=== PATIENT | female | born 1930 | race Caucasian/White ===

== ENCOUNTER 2019-05-12 10:17 | Day surgery (SDC) | payer MEDICARE, OTHER ==
[2019-05-12] MEDS ORDERED: Depo-Medrol 40 MG/ML IM ONE (10:18)
[2019-05-12] MEDS ORDERED: Xylocaine-Mpf 2% 5 Ml Vial IJ ONE (10:18)
[2019-05-12] MEDS ORDERED: DIPRIVAN 200 MG/20 ML IV ONE (11:05)
[2019-05-12] MEDS ORDERED: Ketamine HCl 50 MG/ML ONE (11:06)
--- NOTE | 2019-05-12 12:01 | XRAY ---
Indication: Bilateral L4-S1 MBB. Intraoperative fluoroscopy was provided for 7 seconds. Single spot image submitted for interpretation demonstrates posterior needle tips projecting over the expected course of the left and right L4-S1 nerve roots. Correlate with intraoperative findings/report.
--- NOTE | 2019-05-12 12:03 | XRAY ---
7 seconds fluoroscopy time in surgery for bilateral L4-S1 MBB.
[2019-05-12] MEDS ORDERED: Lactated Ringers 1,000 ML IV ONE (13:45)
== END 2019-05-12 11:35 | disposition home or self-care (01) ==
LOC: SDC-PAIN 10:17
PROVIDERS: ATTEND Psychiatry & Neurology Pain Medicine
DX: M47.816 Spondylosis without myelopathy or radiculopathy, lumbar region (principal); I10 Essential (primary) hypertension; E78.5 Hyperlipidemia, unspecified; K21.9 Gastro-esophageal reflux disease without esophagitis; Z79.899 Other long term (current) drug therapy
CPT/HCPCS: 64493; 64494; 72020; 77002; J1030; J2704

== ENCOUNTER 2019-06-09 09:43 | Day surgery (SDC) | payer MEDICARE, OTHER ==
[2019-06-09] MEDS ORDERED: Sodium Chloride 0.9(Preservative Free) 10 ML IJ ONE (09:44)
[2019-06-09] MEDS ORDERED: Depo-Medrol 40 MG/ML IM ONE (09:44)
[2019-06-09] MEDS ORDERED: Xylocaine 1% Vial 30 ML PF IJ ONE (09:44)
[2019-06-09] MEDS ORDERED: Ketamine HCl 50 MG/ML ONE (11:03)
[2019-06-09] MEDS ORDERED: DIPRIVAN 200 MG/20 ML IV ONE (11:03)
--- NOTE | 2019-06-09 12:54 | XRAY ---
Indication: Lumbar JERRI. Intraoperative fluoroscopy was provided for 20 seconds. 2 digital spot images submitted for interpretation demonstrates midline needle tip just posterior to the last lumbar segment. Small amount of contrast injected for needle tip placement. Correlate with intraoperative findings/report.
--- NOTE | 2019-06-09 13:02 | XRAY ---
20 seconds fluoroscopy time in surgery for lumbar JERRI.
[2019-06-09] MEDS ORDERED: Lactated Ringers 1,000 ML IV ONE (15:52)
== END 2019-06-09 11:33 | disposition home or self-care (01) ==
LOC: SDC-PAIN 09:43
PROVIDERS: ATTEND Psychiatry & Neurology Pain Medicine
DX: M54.16 Radiculopathy, lumbar region (principal); I10 Essential (primary) hypertension; K21.9 Gastro-esophageal reflux disease without esophagitis; E78.5 Hyperlipidemia, unspecified; Z79.899 Other long term (current) drug therapy
CPT/HCPCS: 72100; 77003; J1030; J2001; J2704

== ENCOUNTER 2019-09-26 20:46 | Emergency (ER) | payer MEDICARE, OTHER ==
[2019-09-26] MEDS ORDERED: DELTASONE 20 MG PO ONE (21:47)
[2019-09-26] MEDS ORDERED: DUONEB 0.5-3 MG/3 ml Neb IH ONE ×2 (21:47→22:03)
[2019-09-26] MEDS ORDERED: Robitussin AC Syrup Unit Dose Cup PO ONE (21:47)
[2019-09-26] MEDS ORDERED: DELTASONE 20 MG ONE (21:57)
[2019-09-26] MEDS ORDERED: Robitussin AC Syrup Unit Dose Cup ONE (21:57)
[2019-09-26 22:10] LABS: Absolute Neutrophil Ct (ANC) 5.64 (1.4-6.9); BASOPHIL % 0.6 % (0.0-0.4); Basophil (Absolute #) 0.06 (0-0.4); Eosinophil % 3.6 % (0.00-5.0); Eosinophil (Absolute #) 0.34 (0-0.5); Hematocrit 35.6 % (35-47); Hemoglobin 11.5 gm/dl (12.0-16.0); Lymphocyte (Absolute #) 2.41 (1.0-4.6); Lymphocytes % 25.8 % (24.0-44.0); Mean Cell Volume 93.4 fl (78-100); Mean Corpuscular Hemoglobin 30.2 pg (26-32); Mean Corpuscular Hgb Concent. 32.3 g/dl (32-36); Mean Platelet Volume 9.5 fl (6-9.5); Monocytes % 9.6 % (0.0-12.0); Neutrophil % 60.4 % (36.0-66.0); Platelet Count 244 K/mm3 (150-450); Red Blood Count 3.81 M/mm3 (4.1-5.4); Red Cell Distribution Width 12.6 % (11.5-14.0); White Blood Count 9.4 K/mm3 (4.0-10.5)
[2019-09-26 22:20] LABS: ALBUMIN 4.1 g/dL (3.5-5.0); ALKALINE PHOSPHATASE 113 U/L (38-126); ANION GAP 12.9 MEQ/L (5-15); BLOOD UREA NITROGEN 21 mg/dL (7-17); CHLORIDE 106 mmol/L (98-107); Calcium 10.5 mg/dL (8.4-10.2); Carbon Dioxide 25 mmol/L (22-30); Creatinine 1 0.76 mg/dL (0.52-1.04); Glucose 115 mg/dL (74-106); Potassium 3.8 mmol/L (3.5-5.1); SGOT/AST 23 U/L (14-36); SGPT/ALT 11 U/L (0-35); SODIUM 140 mmol/L (137-145); Total Protein 8.1 g/dL (6.3-8.2)
[2019-09-26 22:24] VITALS: O2SAT 99
[2019-09-26] MEDS ORDERED: Vibramycin 100 MG PO ONE (22:34)
[2019-09-26] MEDS ORDERED: PERCOCET TABLET 5/325MG PO ONE (22:34)
[2019-09-26] MEDS ORDERED: PERCOCET TABLET 5/325MG ONE (22:38)
[2019-09-26] MEDS ORDERED: Vibramycin 100 MG ONE (22:38)
--- NOTE | 2019-09-26 23:01 | ERPHSYRPT ---
- History of Present Illness Time Seen by Provider: 09/26/19 21:05 Source: patient Exam Limitations: no limitations Patient Subjective Stated Complaint: pt states, "I've been coughing since last Friday, feeling really tired, headache and don't feel good". Triage Nursing Assessment: pt states, "Jillian been coughing x1 week, can't get over it and I feel bad and ache all over". Pt has mostly non prod cough with occasional production, white and yellow at times. Lungs coarse throughout. Heart tones reg, pt has pacemaker. Physician History: 89 yo presented with more than 1 week h/o URI with intermittent cough with progressive worsening. cough is dry to minimal mucus production of clear to yellow color. because of coughing having some chest soreness , no fever or chills or shortness of breath. Timing/Duration: week(s) (1), worse Cough Quality/Degree: moderate, dry cough Modifying Factors: Improves With: coughing Associated Symptoms: cough, sore throat, wheezing Allergies/Adverse Reactions: No Known Drug Allergies Allergy (Verified 10/02/16 09:29) Home Medications: Omeprazole [Prilosec] 40 mg PO DAILY 02/20/16 [History] Potassium Chloride 20 Meq [Klor-Con 20 MEQ] 20 meq PO DAILY 02/20/16 [History] Pravastatin Sodium [Pravachol] 80 mg PO DAILY 02/20/16 [History] Losartan Potassium [Cozaar] 25 mg PO DAILY 10/02/16 [History] Tizanidine HCl 4 mg [Zanaflex 4 MG] 4 mg PO HS 10/02/16 [History] Hx Tetanus, Diphtheria Vaccination/Date Given: Yes Hx Influenza Vaccination/Date Given: Yes Hx Pneumococcal Vaccination/Date Given: Yes Immunizations Up to Date: Yes - Review of Systems Constitutional: No Symptoms Eyes: No Symptoms Ears, Nose, & Throat: Nose Congestion, Sinus Drainage, Throat Pain, Throat Swelling Respiratory: Cough Cardiac: No Symptoms Abdominal/Gastrointestinal: No Symptoms Genitourinary Symptoms: No Symptoms Musculoskeletal: No Symptoms Skin: No Symptoms Neurological: No Symptoms Psychological: No Symptoms Endocrine: No Symptoms Hematologic/Lymphatic: No Symptoms Immunological/Allergic: No Symptoms - Past Medical History Pertinent Past Medical History: Yes Neurological History: Migraines ENT History: Cataracts Cardiac History: Arrhythmia, High Cholesterol, Hypertension Respiratory History: No Pertinent History Endocrine Medical History: No Pertinent History Musculoskeletal History: Arthritis GI Medical History: GERD, Gallbladder Disease History: No Pertinent History Psycho-Social History: No Pertinent History Female Reproductive Disorders: No Pertinent History - Past Surgical History Past Surgical History: Yes Neuro Surgical History: No Pertinent History Cardiac: Pacemaker Respiratory: No Pertinent History Gastrointestinal: Cholecystectomy Genitourinary: No Pertinent History Musculoskeletal: Orthopedic Surgery Female Surgical History: Hysterectomy Other Surgical History: left foot surgery - Social History Smoking Status: Never smoker Exposure to second hand smoke: No Drug Use: none Patient Lives Alone: Yes - Female History Hx Now: No - Nursing Vital Signs Nursing Vital Signs: Initial Vital Signs Temperature 97.8 F 09/26/19 21:02 Pulse Rate 82 09/26/19 21:02 Respiratory Rate 20 09/26/19 21:02 Blood Pressure 107/82 09/26/19 21:02 O2 Sat by Pulse Oximetry 98 09/26/19 21:02 Pain Scale Pain Intensity 8 - Physical Exam General Appearance: no apparent distress Eye Exam: eyes nml inspection Ears, Nose, Throat Exam: normal ENT inspection, pharyngeal erythema Neck Exam: normal inspection, non-tender, supple Respiratory Exam: normal breath sounds, lungs clear Cardiovascular Exam: regular rate/rhythm, normal heart sounds Gastrointestinal/Abdomen Exam: soft, normal bowel sounds, No distention Back Exam: normal inspection, normal range of motion, other, No CVA tenderness Extremity Exam: normal inspection, normal range of motion Neurologic Exam: alert, oriented x 3, cooperative Skin Exam: normal color SpO2 Interpretation: normal SpO2: 99 O2 Delivery: Room Air - Course Nursing assessment & vital signs reviewed: Yes Ordered Tests: Active Orders 24 hr Category Date Time Status CHEST 2 VIEWS (PA AND LAT) Stat Exams 09/26/19 21:45 Taken CBC W DIFF Stat Lab 09/26/19 22:04 Completed CMP Stat Lab 09/26/19 22:04 Completed Respiratory Therapy Assessment DAILY RT 09/26/19 22:01 Active Medication Summary Discontinued Medications Generic Name Dose Route Start Last Admin Trade Name Freq PRN Reason Stop Dose Admin Albuterol/Ipratropium 3 ml 09/26/19 21:47 09/26/19 22:02 Duoneb 0.5-3 Mg/3 Ml Neb IH 09/26/19 21:48 3 ml STAT ONE Administration Albuterol/Ipratropium Confirm 09/26/19 22:03 Duoneb 0.5-3 Mg/3 Ml Neb Administered 09/26/19 22:04 Dose 3 ml IH .STK-MED ONE Doxycycline Hyclate 100 mg 09/26/19 22:34 09/26/19 22:38 Vibramycin 100 Mg PO 09/26/19 22:35 100 mg STAT ONE Administration Doxycycline Hyclate Confirm 09/26/19 22:38 Vibramycin 100 Mg Administered 09/26/19 22:39 Dose 100 mg .ROUTE .STK-MED ONE Guaifenesin/Codeine Phosphate 10 ml 09/26/19 21:47 09/26/19 21:59 Robitussin Ac Syrup Unit Dose Cup PO 09/26/19 21:48 10 ml ONCE ONE Administration Guaifenesin/Codeine Phosphate Confirm 09/26/19 21:57 Robitussin Ac Syrup Unit Dose Cup Administered 09/26/19 21:58 Dose 10 ml .ROUTE .STK-MED ONE Oxycodone/Acetaminophen 1 tab 09/26/19 22:34 09/26/19 22:38 Percocet Tablet 5/325mg PO 09/26/19 22:35 1 tab STAT ONE Administration Oxycodone/Acetaminophen Confirm 09/26/19 22:38 Percocet Tablet 5/325mg Administered 09/26/19 22:39 Dose 1 tab .ROUTE .STK-MED ONE Prednisone 60 mg 09/26/19 21:47 09/26/19 21:59 Deltasone 20 Mg PO 09/26/19 21:48 60 mg STAT ONE Administration Prednisone Confirm 09/26/19 21:57 Deltasone 20 Mg Administered 09/26/19 21:58 Dose 20 mg .ROUTE .STK-MED ONE Lab/Rad Data: Laboratory Result Diagrams 09/26/19 22:04 09/26/19 22:04 Laboratory Results 09/26/19 09/26/19 Range/Units 22:04 22:04 WBC 9.4 (4.0-10.5) K/mm3 RBC 3.81 L (4.1-5.4) M/mm3 Hgb 11.5 L (12.0-16.0) gm/dl Hct 35.6 (35-47) % MCV 93.4 (78-100) fl MCH 30.2 (26-32) pg MCHC 32.3 (32-36) g/dl RDW 12.6 (11.5-14.0) % Plt Count 244 (150-450) K/mm3 MPV 9.5 (6-9.5) fl Gran % 60.4 (36.0-66.0) % Eos # (Auto) 0.34 (0-0.5) Absolute Lymphs (auto) 2.41 (1.0-4.6) Absolute Monos (auto) 0.90 (0.0-1.3) Lymphocytes % 25.8 (24.0-44.0) % Monocytes % 9.6 (0.0-12.0) % Eosinophils % 3.6 (0.00-5.0) % Basophils % 0.6 (0.0-0.4) % Absolute Granulocytes 5.64 (1.4-6.9) Basophils # 0.06 (0-0.4) Sodium 140 (137-145) mmol/L Potassium 3.8 (3.5-5.1) mmol/L Chloride 106 (98-107) mmol/L Carbon Dioxide 25 (22-30) mmol/L Anion Gap 12.9 (5-15) MEQ/L BUN 21 H (7-17) mg/dL Creatinine 0.76 (0.52-1.04) mg/dL Estimated GFR > 60.0 ML/MIN Glucose 115 H (74-106) mg/dL Calcium 10.5 H (8.4-10.2) mg/dL Total Bilirubin 0.40 (0.2-1.3) mg/dL AST 23 (14-36) U/L ALT 11 (0-35) U/L Alkaline Phosphatase 113 (38-126) U/L Serum Total Protein 8.1 (6.3-8.2) g/dL Albumin 4.1 (3.5-5.0) g/dL - Progress Progress: improved, re-examined Air Movement: good Progress Note: 09/26/19 22:58 she is given cough syrup with steroids and nebs, on re evaluation better. i beleive she has bronchitis but this is going on for more than a week with bacterial colonization an with her age make her more vulnerable , will do doxy as well. dont think she needs to be admitted , not in any distress and is being dc home with outpatient follow up. discussed sx/sn of worsening needing return which she seems understanding. Counseled pt/family regarding: lab results, diagnosis, need for follow-up, rad results - Departure Departure Disposition: Home Clinical Impression: Acute bronchitis Qualifiers: Bronchitis organism: unspecified organism Qualified Code(s): J20.9 - Acute bronchitis, unspecified Condition: Good Critical Care Time: No Referrals: REGINALD CONNOR MD [Primary Care Provider] - Instructions: Cough, Adult (DC) Additional Instructions: take tylenol as needed. follow up with PCP for re evaluation in 1-2 days. return to ER for any worsening Prescriptions: Guaifenesin/Codeine Phos [Codeine 10 mg-Guai 300 mg Liq] 10 ml PO Q8HPRN PRN 7 Days #118 ml PRN Reason: Cough Doxycycline Hyclate 100 mg [Vibramycin 100 MG] 100 mg PO BID #14 tab Prednisone 50 mg PO DAILY #5 tablet
[2019-09-26 23:18] VITALS: BP 148/69; PULSE 82
--- NOTE | 2019-09-27 08:57 | XRAY ---
Indication: Cough and weakness. Comparison: September 26, 2014. PA/lateral chest rotated with minimal left base fibrosis/scarring. No focal infiltrate, consolidation, or large effusion. Heart is not enlarged with stable left dual-lead pacemaker. Bony thorax intact again with mild osteopenia, degenerative changes, and scoliosis. Impression: Nonacute chest with chronic features.
== END 2019-09-26 23:28 | disposition home or self-care (01) ==
LOC: ED 20:46
DX: J20.9 Acute bronchitis, unspecified (principal); I10 Essential (primary) hypertension; E78.00 Pure hypercholesterolemia, unspecified; Z79.899 Other long term (current) drug therapy
CPT/HCPCS: 36415; 71046; 80053; 85025; 94640; 99284; A9270-GY

== ENCOUNTER 2019-11-09 10:47 | Emergency (ER) | payer MEDICARE, OTHER ==
[2019-11-09] MEDS ORDERED: TENIVAC VIAL IM ONE ×2 (10:56→11:08)
--- NOTE | 2019-11-09 11:16 | ERPHSYRPT ---
- History of Present Illness Time Seen by Provider: 11/09/19 10:51 Source: patient Exam Limitations: no limitations Patient Subjective Stated Complaint: Fall Triage Nursing Assessment: Patient brought back to ED via w/c and transferred to bed with assist of 1. Patient A+O X 3. Patient's skin pink, warm and dry. Patient states she was walking in front of hospital on way inside and fell landing flat on stomach with face hitting concrete. Patient states pain is left wrist/hand 5/10. Bruising and swelling noted to left wrist. Laceration to upper lip 1cm X 0.1cm. Laceration to left hand, 5th digit 1cm X 0.5 cm Method of Injury: fall Occurred: just prior to arrival Where Injury Occurred: other (parking lot) Loss of Consciousness: no loss of consciousness Pain Location: face, wrist, hand Severity of Pain-Max: severe Severity of Pain-Current: moderate Associated Symptoms: extremity injury Allergies/Adverse Reactions: No Known Drug Allergies Allergy (Verified 11/09/19 10:56) Home Medications: Omeprazole [Prilosec] 40 mg PO DAILY 02/20/16 [History] Potassium Chloride 20 Meq [Klor-Con 20 MEQ] 20 meq PO DAILY 02/20/16 [History] Pravastatin Sodium [Pravachol] 80 mg PO DAILY 02/20/16 [History] Losartan Potassium [Cozaar] 25 mg PO DAILY 10/02/16 [History] Tizanidine HCl 4 mg [Zanaflex 4 MG] 4 mg PO HS 10/02/16 [History] Hx Tetanus, Diphtheria Vaccination/Date Given: No Hx Influenza Vaccination/Date Given: Yes Hx Pneumococcal Vaccination/Date Given: Yes Immunizations Up to Date: Yes - Review of Systems Constitutional: No Fever, No Chills Eyes: No Symptoms Ears, Nose, & Throat: No Symptoms Respiratory: No Cough, No Dyspnea Cardiac: No Chest Pain, No Edema, No Syncope Abdominal/Gastrointestinal: No Abdominal Pain, No Nausea, No Vomiting, No Diarrhea Genitourinary Symptoms: No Dysuria Musculoskeletal: Fall, Injury, Joint Pain, No Back Pain, No Neck Pain Skin: Other (laceration to left hand), No Rash Neurological: No Dizziness, No Focal Weakness, No Sensory Changes Psychological: No Symptoms Endocrine: No Symptoms All Other Systems: Reviewed and Negative - Past Medical History Pertinent Past Medical History: Yes Neurological History: Migraines ENT History: Cataracts Cardiac History: Arrhythmia, High Cholesterol, Hypertension Respiratory History: No Pertinent History Endocrine Medical History: No Pertinent History Musculoskeletal History: Arthritis GI Medical History: GERD, Gallbladder Disease History: No Pertinent History Psycho-Social History: No Pertinent History Female Reproductive Disorders: No Pertinent History - Past Surgical History Past Surgical History: Yes Neuro Surgical History: No Pertinent History Cardiac: Pacemaker Respiratory: No Pertinent History Gastrointestinal: Cholecystectomy Genitourinary: No Pertinent History Musculoskeletal: Orthopedic Surgery Female Surgical History: Hysterectomy Other Surgical History: left foot surgery - Social History Smoking Status: Never smoker Exposure to second hand smoke: No Drug Use: none Patient Lives Alone: Yes Physical Exam - Nursing Vital Signs Nursing Vital Signs: Initial Vital Signs Temperature 98.0 F 11/09/19 10:56 Pulse Rate 67 11/09/19 10:56 Respiratory Rate 18 11/09/19 10:56 Blood Pressure 155/88 11/09/19 10:56 O2 Sat by Pulse Oximetry 97 11/09/19 10:56 Pain Scale Pain Intensity 5 - Haleigh Coma Score Best Eye Response ([place]): (4) open spontaneously Best Verbal Response ([place]): (5) oriented Best Motor Response ([place]): (6) obeys commands [place] Total: 15 - Physical Exam General Appearance: mild distress, alert Head Injury: no evidence of injury ENT Exam: airway nml, nml ext.inspection, No evidence of ENT injury Neck Exam: supple, trachea midline, normal inspection, c-collar in place, No tenderness Respiratory/Chest Exam: normal breath sounds, No chest tenderness, No respiratory distress, No ecchymosis, No crepitus Cardiovascular Exam: normal heart sounds, regular rate/rhythm, normal peripheral pulses, No murmur, No edema, No JVD Gastrointestinal Exam: soft, No tenderness, No distention, No guarding Back Exam: normal inspection, normal range of motion, No vertebral tenderness Extremity Exam: normal range of motion, capillary refill <3 sec, pelvis stable, joint swelling (left wrist), limited range of motion, tenderness (left wrist and 5th digit.) Neurologic Exam: alert, oriented x 3, cooperative, 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, sensation nml, No motor deficits Skin Exam: normal color, warm, dry, laceration (palamr aspect of 5th left MCP area) SpO2: 97 Procedures - Laceration/Wound Repair Left Proximal Volar Hand Wound Location: Left, hand Wound Length (cm): 2.5 Wound's Depth, Shape: irregular, into subcut Wound Explored: clean Irrigated: Yes Hibiclens Prep: Yes Anesthesia: local, 1% Lidocaine Volume Anesthetic (ccs): 3 Wound Repaired With: sutures Suture Size/Type: 5-0, ethilon Number of Sutures: 5 Layer Closure?: No Sterile Dressing Applied?: Yes Splint Applied?: Yes Type of Splint Applied: Volar wrist Sling Applied?: No - Course Nursing assessment & vital signs reviewed: Yes - Radiology Exams Wrist X-ray Interpretation: Discussed w/ radiologist, Other (possible widening of scapholunate, ligament injury. ) Left Hand X-ray Interpretation: Discussed w/ radiologist, No Fracture - CT Exams Head CT Interpretation: Discussed w/radiologist, No/Intracranial Hemorrhag Cervical Spine CT Interpretation: Discussed w/radiologist, No Fracture, No Subluxation Maxillofacial Bones CT Interpretation: Discussed w/radiologist, No Fracture Ordered Tests: Active Orders 24 hr Category Date Time Status IV Insertion STAT Care 11/09/19 10:56 Active NPO (ED) STAT Care 11/09/19 10:56 Active Splint STAT Care 11/09/19 12:59 Ordered Wound Care STAT Care 11/09/19 12:58 Ordered CERVICAL SPINE WO CONTRAST [CT] Stat Exams 11/09/19 10:57 Completed FACIAL BONES WO CONTRAST [CT] Stat Exams 11/09/19 10:57 Completed HAND (MINIMUM 3 VIEWS) Stat Exams 11/09/19 12:02 Completed HEAD WITHOUT CONTRAST [CT] Stat Exams 11/09/19 10:57 Completed WRIST (MIN 3 VIEWS) Stat Exams 11/09/19 10:58 Completed CBC W DIFF Stat Lab 11/09/19 11:29 Completed CMP Stat Lab 11/09/19 11:29 Completed PROTIME WITH INR Stat Lab 11/09/19 11:29 Completed PTT Stat Lab 11/09/19 11:29 Completed Medication Summary Discontinued Medications Generic Name Dose Route Start Last Admin Trade Name Freq PRN Reason Stop Dose Admin Tetanus/Diphtheria Toxoids Adsorbed 0.5 ml 11/09/19 10:56 11/09/19 11:10 Tenivac Vial IM 11/09/19 10:57 0.5 ml .ONCE ONE Administration Tetanus/Diphtheria Toxoids Adsorbed Confirm 11/09/19 11:08 Tenivac Vial Administered 11/09/19 11:09 Dose 0.5 ml IM .STK-MED ONE Lab/Rad Data: Laboratory Result Diagrams 11/09/19 11:29 11/09/19 11:29 Laboratory Results 11/09/19 11/09/19 11/09/19 Range/Units 11:29 11:29 11:29 WBC 6.9 (4.0-10.5) K/mm3 RBC 4.11 (4.1-5.4) M/mm3 Hgb 12.4 (12.0-16.0) gm/dl Hct 38.2 (35-47) % MCV 92.9 (78-100) fl MCH 30.2 (26-32) pg MCHC 32.5 (32-36) g/dl RDW 13.8 (11.5-14.0) % Plt Count 222 (150-450) K/mm3 MPV 9.4 (7.5-11.0) fl Gran % 49.9 (36.0-66.0) % Eos # (Auto) 0.32 (0-0.5) Absolute Lymphs (auto) 2.57 (1.0-4.6) Absolute Monos (auto) 0.51 (0.0-1.3) Lymphocytes % 37.4 (24.0-44.0) % Monocytes % 7.4 (0.0-12.0) % Eosinophils % 4.7 (0.00-5.0) % Basophils % 0.6 (0.0-0.4) % Absolute Granulocytes 3.44 (1.4-6.9) Basophils # 0.04 (0-0.4) PT 11.0 (9.95-12.35) SECONDS INR 0.97 (0.8-3.0) APTT 35.0 (25.3-37.0) SECONDS Sodium 140 (137-145) mmol/L Potassium 3.9 (3.5-5.1) mmol/L Chloride 102 (98-107) mmol/L Carbon Dioxide 28 (22-30) mmol/L Anion Gap 13.9 (5-15) MEQ/L BUN 31 H (7-17) mg/dL Creatinine 0.83 (0.52-1.04) mg/dL Estimated GFR > 60.0 ML/MIN Glucose 98 (74-106) mg/dL Calcium 10.4 H (8.4-10.2) mg/dL Total Bilirubin 0.50 (0.2-1.3) mg/dL AST 25 (14-36) U/L ALT 14 (0-35) U/L Alkaline Phosphatase 100 (38-126) U/L Serum Total Protein 7.9 (6.3-8.2) g/dL Albumin 4.2 (3.5-5.0) g/dL - Progress Progress: improved Progress Note: 11/09/19 13:03 Pt stable throughout. XR and CT fairly normal. Wrist XR shows possible ligamentous injury. Declines pain meds at this time. Advised follow up with PCP for re-eval of wrist. Counseled pt/family regarding: lab results, diagnosis, need for follow-up, rad results - Departure Departure Disposition: Home Clinical Impression: Hand laceration Qualifiers: Encounter type: initial encounter Foreign body presence: without foreign body Laterality: left Qualified Code(s): S61.412A - Laceration without foreign body of left hand, initial encounter Contusion of face Qualifiers: Encounter type: initial encounter Qualified Code(s): S00.83XA - Contusion of other part of head, initial encounter Wrist contusion Qualifiers: Encounter type: initial encounter Laterality: left Qualified Code(s): S60.212A - Contusion of left wrist, initial encounter Condition: Good Critical Care Time: No Referrals: REGINALD CONNOR MD [Primary Care Provider] - Instructions: Contusion (DC), Surgical Wound (DC) Additional Instructions: Monitor symptoms closely. Keep left hand and wrist dry. Keep in splint. Follow up with PCP in 4-5 days for recheck. Suture removal in 7 days. Return to ER if worse.
[2019-11-09 11:32] LABS: Absolute Neutrophil Ct (ANC) 3.44 (1.4-6.9); BASOPHIL % 0.6 % (0.0-0.4); Basophil (Absolute #) 0.04 (0-0.4); Eosinophil % 4.7 % (0.00-5.0); Eosinophil (Absolute #) 0.32 (0-0.5); Hematocrit 38.2 % (35-47); Hemoglobin 12.4 gm/dl (12.0-16.0); Lymphocyte (Absolute #) 2.57 (1.0-4.6); Lymphocytes % 37.4 % (24.0-44.0); Mean Cell Volume 92.9 fl (78-100); Mean Corpuscular Hemoglobin 30.2 pg (26-32); Mean Corpuscular Hgb Concent. 32.5 g/dl (32-36); Mean Platelet Volume 9.4 fl (7.5-11.0); Monocyte (Absolute #) 0.51 (0.0-1.3); Monocytes % 7.4 % (0.0-12.0); Neutrophil % 49.9 % (36.0-66.0); Platelet Count 222 K/mm3 (150-450); Red Blood Count 4.11 M/mm3 (4.1-5.4); Red Cell Distribution Width 13.8 % (11.5-14.0); White Blood Count 6.9 K/mm3 (4.0-10.5)
[2019-11-09 11:39] LABS: INR 0.97 (0.8-3.0)
[2019-11-09 11:42] LABS: ALBUMIN 4.2 g/dL (3.5-5.0); ALKALINE PHOSPHATASE 100 U/L (38-126); ANION GAP 13.9 MEQ/L (5-15); BLOOD UREA NITROGEN 31 mg/dL (7-17); CHLORIDE 102 mmol/L (98-107); Calcium 10.4 mg/dL (8.4-10.2); Carbon Dioxide 28 mmol/L (22-30); Creatinine 1 0.83 mg/dL (0.52-1.04); Glucose 98 mg/dL (74-106); Potassium 3.9 mmol/L (3.5-5.1); SGOT/AST 25 U/L (14-36); SGPT/ALT 14 U/L (0-35); SODIUM 140 mmol/L (137-145); Total Protein 7.9 g/dL (6.3-8.2)
--- NOTE | 2019-11-09 12:16 | XRAY ---
Indication: Left head injury following fall. Multiple contiguous axial images obtained through the head without contrast. Comparison: September 26, 2014. Again age-appropriate global atrophy and mild periventricular degenerative micro-ischemia bilaterally. No acute intracranial hemorrhage, abnormal extra-axial fluid collection, or mass effect. Fourth ventricle is midline without hydrocephalus. Bony calvarium intact. Visualized paranasal sinuses and mastoid air cells are clear. Impression: Again nonacute senile brain.
--- NOTE | 2019-11-09 12:22 | XRAY ---
Indication: Neck pain. Left head injury following fall. Multiple contiguous axial images obtained through the cervical spine. Sagittal and coronal reformatted images obtained. Comparison: October 04, 2016. Stable osteopenia. Axial images again negative for acute fracture, suspicious bony lesions, or spinal canal stenosis. There remains mild C3-C7 degenerative endplate spurring, atlantoaxial degenerative changes, and mild multilevel bilateral degenerative facet hypertrophy. New C4-C5 degenerative vacuum disc phenomena. Sagittal and coronal reformatted images demonstrates cervical lordotic straightening, positional versus paraspinal spasm. Stable C3-C7 degenerative disc space narrowing. Again no acute compression fracture, subluxation, or jumped facet. Normal-appearing craniocervical junction. Visualized noncontrasted soft tissues again demonstrates minimal bilateral carotid calcifications and partially visualized left pacer leads. Lung apices unremarkable. Impression: 1. Cervical lordotic straightening, positional versus paraspinal spasm. 2. Continued negative for acute fracture/subluxation. 3. Again incidental osteopenia and multilevel degenerative changes.
--- NOTE | 2019-11-09 12:26 | XRAY ---
Indication: Left head/face injury following fall. Multiple contiguous axial images obtained through the facial bones. Sagittal and coronal reformatted images obtained. Comparison: None. There is osteopenia and old right mandible body fracture. No acute fracture, suspicious bony lesions, or radiopaque foreign body. Orbits including roof, tee, and floors intact. Minimal mucosal thickening floor of both maxillary sinuses. Remaining paranasal sinuses and nasal passages are clear. Minimal nasal septal deviation to the left. Patient is edentulous. Moderate bilateral TMJ degenerative changes. Mild bilateral carotid calcifications. Remaining visualized noncontrasted soft tissues unremarkable. CT head and CT cervical spine reported separately. Impression: 1. Negative for acute fracture. 2. Osteopenia, old right mandible fracture, minimal nasal septal deviation, and bilateral TMJ degenerative changes. 3. Minimal bilateral maxillary sinus disease.
--- NOTE | 2019-11-09 12:26 | XRAY ---
Indication: Pain and bruising following fall. 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 No other bony, articular, or soft tissue abnormalities.
--- NOTE | 2019-11-09 12:28 | XRAY ---
Indication: Pain and bruising following fall. 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 No other bony, articular, or soft tissue abnormalities. Wrist reported separately.
[2019-11-09 13:57] VITALS: BP 173/81; PULSE 68; O2SAT 98
== END 2019-11-09 13:42 | disposition home or self-care (01) ==
LOC: ED 10:47
DX: S61.412A Laceration without foreign body of left hand, initial encounter (principal); S60.212A Contusion of left wrist, initial encounter; S01.511A Laceration without foreign body of lip, initial encounter; W18.30XA Fall on same level, unspecified, initial encounter; Y93.01 Activity, walking, marching and hiking; Y92.481 Parking lot as the place of occurrence of the external cause
CPT/HCPCS: 12001; 29126; 36000; 36415; 70450; 70486; 72125; 73110; 73130; 80053; 85025; 85610; 85730; 90471; 90714; 99284

== ENCOUNTER 2019-11-30 15:16 | Emergency (ER) | payer MEDICARE, OTHER ==
[2019-11-30 15:30] VITALS: BP 159/74; O2SAT 98
--- NOTE | 2019-11-30 15:38 | ERPHSYRPT ---
- History of Present Illness Time Seen by Provider: 11/30/19 15:30 Source: patient Exam Limitations: no limitations Patient Subjective Stated Complaint: Pt states "about 3 weeks ago I fell in the parking lot and they said I hurt the bones or tendons or something and I went to the dr and got the splint off and the stitches out but it really hurts now." Triage Nursing Assessment: PT presented alert and oriented X 3, ski pwd Pt ambulates with a slow steady gait, using a cane. PT able to speak in clear full sentences pt holding left hand up to her chest, guarding. Physician History: She is an 89-year-old female who is right-hand dominant presents with a chief complaint of left wrist pain. Of note, the patient reportedly fell during the first week of November 2019 and injured her left wrist and hand. She reportedly went to the emergency department at that time and had x-rays that were reportedly normal and was put in a splint and followed up with her primary care provider. She reports that she was taken out of the splint after the first week and reportedly was doing fine until the last couple days where she started to have an increase in left wrist pain in addition to swelling. She denies fever, chills, new injury to the left wrist or hands or any new falls. She reported has been taken Tylenol for the pain without any relief. She denies history of gout and pseudogout but endorsed having arthritis. Pain is described as a aching/throbbing pain located to the lateral aspect at the distal left wrist that radiates to the lateral aspect of her hand and thumb. She is noticed some swelling to the left wrist and the pain increases with movement, specifically flexion and extension of the left wrist and upon palpation. Allergies/Adverse Reactions: No Known Drug Allergies Allergy (Verified 11/09/19 10:56) Home Medications: Omeprazole [Prilosec] 40 mg PO DAILY 02/20/16 [History] Potassium Chloride 20 Meq [Klor-Con 20 MEQ] 20 meq PO DAILY 02/20/16 [History] Pravastatin Sodium [Pravachol] 80 mg PO DAILY 02/20/16 [History] Losartan Potassium [Cozaar] 25 mg PO DAILY 10/02/16 [History] Tizanidine HCl 4 mg [Zanaflex 4 MG] 4 mg PO HS 10/02/16 [History] Hx Tetanus, Diphtheria Vaccination/Date Given: Yes Hx Influenza Vaccination/Date Given: Yes Hx Pneumococcal Vaccination/Date Given: Yes Immunizations Up to Date: Yes - Review of Systems Constitutional: No Fever, No Chills Eyes: No Symptoms Musculoskeletal: Arthralgias, Joint Pain (left wrist and hand pain), Joint Swelling, No Deformity, No Fall, No Injury, No Joint Redness Skin: No Symptoms Neurological: No Symptoms, No Parasthesia Psychological: No Symptoms - Past Medical History Pertinent Past Medical History: Yes Neurological History: Migraines ENT History: Cataracts Cardiac History: Arrhythmia, High Cholesterol, Hypertension Respiratory History: No Pertinent History Endocrine Medical History: No Pertinent History Musculoskeletal History: Arthritis GI Medical History: GERD, Gallbladder Disease History: No Pertinent History Psycho-Social History: No Pertinent History Female Reproductive Disorders: No Pertinent History - Past Surgical History Past Surgical History: Yes Neuro Surgical History: No Pertinent History Cardiac: Pacemaker Respiratory: No Pertinent History Gastrointestinal: Cholecystectomy Genitourinary: No Pertinent History Musculoskeletal: Orthopedic Surgery Female Surgical History: Hysterectomy Other Surgical History: left foot surgery - Social History Smoking Status: Never smoker Exposure to second hand smoke: No Drug Use: none Patient Lives Alone: Yes - Female History Hx Now: No - Nursing Vital Signs Nursing Vital Signs: Initial Vital Signs Temperature 98.2 F 11/30/19 15:24 Pulse Rate 70 11/30/19 15:24 Respiratory Rate 20 11/30/19 15:24 Blood Pressure 159/74 11/30/19 15:24 O2 Sat by Pulse Oximetry 98 11/30/19 15:24 Pain Scale Pain Intensity 3 - Physical Exam General Appearance: no apparent distress, alert Eye Exam: PERRL/EOMI, No EOM palsy/anisocoria Ears, Nose, Throat Exam: normal ENT inspection Neck Exam: normal inspection Respiratory Exam: normal breath sounds, lungs clear, No chest tenderness, No respiratory distress Cardiovascular Exam: regular rate/rhythm, normal heart sounds, normal peripheral pulses, capillary refill <2 sec, No pulse deficit Pelvic Exam: deferred Rectal Exam: deferred Extremity Exam: joint swelling, tenderness, other (Tenderness to the lateral aspect of the left wrist with mild swelling that extending to the lateral aspect of the thumb. No crepitus, deformity, increased warmth to the affected region of wrist/hand. Flexion and extension of the left wrist limited due to pain. Motor function intact in the L hand ) Neurologic Exam: alert, oriented x 3, cooperative, other (Sensation to gross touch intact in the L hand) Skin Exam: normal color, warm, dry, other (No evidence of surrounding cellulitis to the L wrist), No rash, No petechiae SpO2 Interpretation: normal SpO2: 98 O2 Delivery: Room Air - Course Nursing assessment & vital signs reviewed: Yes - Radiology Exams Wrist X-ray Interpretation: Reviewed by me, Other (No fracture of dislocation. Evidence of chondrocalcinosis) Hand X-ray Interpretation: Reviewed by me (No fracture of dislocation, chondrocalcinosis of the left wrist) Ordered Tests: Active Orders 24 hr Category Date Time Status HAND (MINIMUM 3 VIEWS) Stat Exams 11/30/19 15:36 Completed WRIST (MIN 3 VIEWS) Stat Exams 11/30/19 15:36 Completed Medication Summary Discontinued Medications Generic Name Dose Route Start Last Admin Trade Name Freq PRN Reason Stop Dose Admin Hydrocodone Bitart/Acetaminophen 1 tab 11/30/19 15:37 11/30/19 15:41 [place] 5/325 Mg PO 11/30/19 15:38 1 tab STAT ONE Administration Hydrocodone Bitart/Acetaminophen Confirm 11/30/19 15:40 [place] 5/325 Mg Administered 11/30/19 15:41 Dose 1 tab .ROUTE .STK-MED ONE - Progress Progress: improved Progress Note: 11/30/19 16:47 Kidney function was within normal limits on November 09, 2019 when I reviewed her EMR. 12/01/19 10:28 Nontoxic in appearance. x-rays ordered to eval for evidence of occult fracture and were negative for such. Differential at this time includes osteoarthritis of the L wrist and 1st metacarapal joint as well as pseudogout flare. Low suspicion for septic arthritis at this time. The patient was provided with reassurance and instructions to f/u with her PCP for further evaluation and management. Short course of NSAID and [place] prescribed for pain. Counseled pt/family regarding: diagnosis, need for follow-up, rad results - Departure Departure Disposition: Home Clinical Impression: Chondrocalcinosis, Wrist pain, right Condition: Stable Critical Care Time: No Referrals: REGINALD CONNOR MD [Primary Care Provider] - Instructions: Calcium Pyrophosphate Deposition Disease, Hand Pain (DC) Additional Instructions: Follow-up with your primary care provider as needed for further evaluation and management. Please take the medication as prescribed to you for your pain. Prescriptions: Hydrocodone/APAP 5-325 Tab^^^ [[place] 5-325 Tablet^^^] 1 tab PO Q6HPRN PRN #16 tablet MDD 6 PRN Reason: Pain Indomethacin 25 mg [Indocin 25 MG] 25 mg PO BID PRN #30 capsule
[2019-11-30] MEDS ORDERED: NORCO 5/325 MG ONE (15:40)
[2019-11-30] MEDS: NORCO 5/325 MG PO ONE (15:41)
--- NOTE | 2019-11-30 16:25 | XRAY ---
Indication: Pain following fall. Comparison: November 09, 2019. 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 No new/acute findings. Hand reported separately.
--- NOTE | 2019-11-30 16:25 | XRAY ---
Indication: Pain following fall. Comparison: November 09, 2019. 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 No new/acute findings. Wrist reported separately.
[2019-11-30 17:12] VITALS: PULSE 78
== END 2019-11-30 17:13 | disposition home or self-care (01) ==
LOC: ED 15:16
DX: M11.231 Other chondrocalcinosis, right wrist (principal); M25.531 Pain in right wrist; M19.90 Unspecified osteoarthritis, unspecified site; I10 Essential (primary) hypertension; E78.00 Pure hypercholesterolemia, unspecified; Z79.899 Other long term (current) drug therapy
CPT/HCPCS: 73110; 73130; 99284; A9270-GY

== ENCOUNTER 2020-02-23 12:10 | Day surgery (SDC) | payer MEDICARE, OTHER ==
[2020-02-23] MEDS ORDERED: Depo-Medrol 40 MG/ML IM ONE (12:11)
[2020-02-23] MEDS ORDERED: Xylocaine 1% Vial 30 ML PF IJ ONE (12:11)
[2020-02-23] MEDS ORDERED: Marcaine 0.5% SDV 10 ML IJ ONE (12:11)
--- NOTE | 2020-02-23 16:31 | XRAY ---
4 seconds fluoroscopy time in surgery for left knee intra-articular injection.
--- NOTE | 2020-02-23 16:41 | XRAY ---
5 seconds fluoroscopy time in surgery for right intra-articular knee injection.
--- NOTE | 2020-02-26 19:50 | XRAY ---
Indication: Right knee infection. Intraoperative fluoroscopy was provided for 5 seconds. A single frontal digital spot image submitted for interpretation demonstrates the needle tip projected over the intercondylar notch above the tibial plateau. A small of contrast has been injected for needle tip placement within the joint. Correlate with intraoperative findings/report.
--- NOTE | 2020-02-26 20:00 | XRAY ---
Indication: Left knee injection. Intraoperative fluoroscopy was provided for 4 seconds. A single frontal digital image reveals needle tip to be in the projection of the intercondylar notch above the tibial plateau. Some contrast has been injected for needle tip placement in the joint. Correlate with intraoperative findings/report.
== END 2020-02-23 13:24 | disposition home or self-care (01) ==
LOC: SDC-PAIN 12:10
PROVIDERS: ATTEND Psychiatry & Neurology Pain Medicine
DX: M17.0 Bilateral primary osteoarthritis of knee (principal); I10 Essential (primary) hypertension; E78.5 Hyperlipidemia, unspecified; K21.9 Gastro-esophageal reflux disease without esophagitis; Z79.899 Other long term (current) drug therapy
CPT/HCPCS: 20610; 73560; 77002; J1030; J2001; Q9966

== ENCOUNTER 2020-03-02 18:30 | Emergency (ER) | payer MEDICARE, OTHER ==
--- NOTE | 2020-03-02 18:59 | ERPHSYRPT ---
- History of Present Illness Time Seen by Provider: 03/02/20 18:45 Historian: patient, EMS Exam Limitations: no limitations Physician History: This is an 89-year-old white female with a history of hypertension and status post cholecystectomy who presents with gradual onset of right flank pain and then radiation around anteriorly to the right upper quadrant epigastric area. The pain initially was sharp as it moved around anteriorly. Now, there is epigastric pain that is more burning per patient report. Patient denies trauma. She states she definitely does not have chest pain. She is not short of breath she has no other areas of pain on her abdomen she states that she has no urinary frequency or urgency. She has no dysuria. Timing/Duration: today Activities at Onset: none Quality: burning, sharpness Abdominal Pain Onset Location: RUQ, epigastric Pain Radiation: flank (Flank) Severity of Pain-Max: moderate Severity of Pain-Current: mild Modifying Factors: Improves With: nothing Associated Symptoms: denies symptoms, No chest pain, No diaphoresis, No diarrhea , No loss of appetite, No nausea, No shortness of breath, No vomiting Previous symptoms: no prior history Allergies/Adverse Reactions: No Known Drug Allergies Allergy (Verified 11/09/19 10:56) Home Medications: Amlodipine Besylate 5 mg [Norvasc 5 mg] 5 mg PO DAILY 03/02/20 [History] Aspirin EC 325 mg [Ecotrin 325 MG] 325 mg PO DAILY 03/02/20 [History] Ezetimibe 10 mg PO DAILY 03/02/20 [History] Ezetimibe 10 mg [Zetia 10 MG] 10 mg PO DAILY 03/02/20 [History] Gabapentin 100 mg PO DAILY 03/02/20 [History] Losartan Potassium 25 mg PO DAILY 03/02/20 [History] Metoprolol Tartrate 25 mg [Lopressor 25MG Tab] 25 mg PO DAILY 03/02/20 [ History] Omeprazole 40 mg PO DAILY 03/02/20 [History] Potassium Chloride [Klor-Con M20] 20 meq PO DAILY 03/02/20 [History] Pravastatin Sodium 80 mg PO DAILY 03/02/20 [History] Tizanidine HCl 4 mg [Zanaflex 4 MG] 4 mg PO DAILY 03/02/20 [History] Tramadol HCl 50 mg [Ultram 50 mg] 50 mg PO DAILY 03/02/20 [History] Hx Tetanus, Diphtheria Vaccination/Date Given: Yes Hx Influenza Vaccination/Date Given: Yes Hx Pneumococcal Vaccination/Date Given: Yes Travel Risk - International Travel Have you traveled outside of the country in past 3 weeks: No Have you or anyone close to you been diagnosed with or: No Do your reside in a community with a known COVID-19 case?: Yes If Yes where:: [facility] - Review of Systems Constitutional: No Symptoms Eyes: No Symptoms Ears, Nose, & Throat: No Symptoms Respiratory: No Symptoms Cardiac: No Symptoms Abdominal/Gastrointestinal: Abdominal Pain (Right upper quadrant and epigastric pain), No Nausea, No Vomiting, No Diarrhea, No Appetite Changes Genitourinary Symptoms: Flank Pain (Right side) Musculoskeletal: No Symptoms Skin: No Symptoms Neurological: No Symptoms Psychological: No Symptoms Endocrine: No Symptoms Hematologic/Lymphatic: No Symptoms Immunological/Allergic: No Symptoms All Other Systems: Reviewed and Negative - Past Medical History Pertinent Past Medical History: Yes Neurological History: Migraines ENT History: Cataracts Cardiac History: Arrhythmia, High Cholesterol, Hypertension Respiratory History: No Pertinent History Endocrine Medical History: No Pertinent History Musculoskeletal History: Arthritis GI Medical History: GERD, Gallbladder Disease History: No Pertinent History Psycho-Social History: No Pertinent History Female Reproductive Disorders: No Pertinent History - Past Surgical History Past Surgical History: Yes Neuro Surgical History: No Pertinent History Cardiac: Pacemaker Respiratory: No Pertinent History Gastrointestinal: Cholecystectomy Genitourinary: No Pertinent History Musculoskeletal: Orthopedic Surgery Female Surgical History: Hysterectomy Other Surgical History: left foot surgery - Social History Smoking Status: Never smoker Exposure to second hand smoke: No Drug Use: none Patient Lives Alone: Yes - Nursing Vital Signs Nursing Vital Signs: Initial Vital Signs Temperature 97.7 F 03/02/20 18:52 Pulse Rate 62 03/02/20 18:52 Respiratory Rate 17 03/02/20 18:52 Blood Pressure 152/75 03/02/20 18:52 O2 Sat by Pulse Oximetry 97 03/02/20 18:52 Pain Scale Pain Intensity 4 - Physical Exam General Appearance: no apparent distress, alert, anxiety Eye Exam: PERRL/EOMI, eyes nml inspection Ears, Nose, Throat Exam: normal ENT inspection, moist mucous membranes Neck Exam: normal inspection, non-tender, supple, full range of motion Respiratory Exam: normal breath sounds, lungs clear, airway intact, No chest tenderness, No respiratory distress Cardiovascular Exam: regular rate/rhythm, normal heart sounds, normal peripheral pulses Gastrointestinal/Abdomen Exam: soft, normal bowel sounds, tenderness (Mild right upper quadrant and epigastric discomfort), guarding, No rebound (Mild) Pelvic Exam: not done Rectal Exam: not done Back Exam: normal inspection, normal range of motion, CVA tenderness (Right side ), No vertebral tenderness Extremity Exam: normal inspection, normal range of motion, pelvis stable Neurologic Exam: alert, oriented x 3, cooperative, food assembler II-XII nml as tested Skin Exam: normal color, warm, dry Lymphatic Exam: No adenopathy SpO2 Interpretation: normal O2 Delivery: Room Air - Course Nursing assessment & vital signs reviewed: Yes EKG Interpreted by Me: RATE (60), Other (Atrial paced rhythm. No acute ischemic changes. No changes from EKG dated 10/02/2016) Ordered Tests: Active Orders 24 hr Category Date Time Status EKG-ER Only STAT Care 03/02/20 18:51 Active IV Insertion STAT Care 03/02/20 18:51 Active ABDOMEN AND PELVIS W/0 CONTRAS [CT] Stat Exams 03/02/20 18:52 Taken CHEST WITH CONTRAST [CT] Stat Exams 03/02/20 20:53 Ordered AMYLASE Stat Lab 03/02/20 19:05 Completed CBC W DIFF Stat Lab 03/02/20 19:05 Completed CMP Stat Lab 03/02/20 19:05 Completed D-DIMER QUANTITATIVE Stat Lab 03/02/20 19:05 Completed LIPASE Stat Lab 03/02/20 19:05 Completed Lactic Acid Stat Lab 03/02/20 19:05 Completed PROTIME WITH INR Stat Lab 03/02/20 19:05 Completed TROPONIN Q3H Lab 03/02/20 19:05 Completed TROPONIN Q3H Lab 03/02/20 22:20 Received TROPONIN Q3H Lab 03/03/20 01:00 Ordered TROPONIN Q3H Lab 03/03/20 04:00 Ordered TROPONIN Q3H Lab 03/03/20 07:00 Ordered UA W/RFX UR CULTURE Stat Lab 03/02/20 19:00 Completed Medication Summary Generic Name Dose Route Start Last Admin Trade Name Freq PRN Reason Stop Dose Admin Sodium Chloride 1,000 mls @ 100 mls/hr 03/02/20 21:00 03/02/20 21:05 Sodium Chloride 0.9% 1000 Ml IV 04/01/20 20:59 100 mls/hr .Q10H YAKELIN Administration Lab/Rad Data: Laboratory Result Diagrams 03/02/20 19:05 03/02/20 19:05 Laboratory Results 03/02/20 03/02/20 03/02/20 Range/Units 19:05 19:05 19:05 WBC (4.0-10.5) K/mm3 RBC (4.1-5.4) M/mm3 Hgb (12.0-16.0) gm/dl Hct (35-47) % MCV (78-100) fl MCH (26-32) pg MCHC (32-36) g/dl RDW (11.5-14.0) % Plt Count (150-450) K/mm3 MPV (7.5-11.0) fl Gran % (36.0-66.0) % Eos # (Auto) (0-0.5) Absolute Lymphs (auto) (1.0-4.6) Absolute Monos (auto) (0.0-1.3) Lymphocytes % (24.0-44.0) % Monocytes % (0.0-12.0) % Eosinophils % (0.00-5.0) % Basophils % (0.0-0.4) % Absolute Granulocytes (1.4-6.9) Basophils # (0-0.4) PT 10.7 (9.95-12.35) SECONDS INR 0.95 (0.8-3.0) D-Dimer 680 H* (215-500) ng/mL Sodium 140 (137-145) mmol/L Potassium 3.9 (3.5-5.1) mmol/L Chloride 104 (98-107) mmol/L Carbon Dioxide 28 (22-30) mmol/L Anion Gap 11.5 (5-15) MEQ/L BUN 23 H (7-17) mg/dL Creatinine 0.82 (0.52-1.04) mg/dL Estimated GFR > 60.0 ML/MIN Glucose 112 H (74-106) mg/dL Lactic Acid (0.4-2.0) Calcium 10.1 (8.4-10.2) mg/dL Total Bilirubin 0.50 (0.2-1.3) mg/dL AST 29 (14-36) U/L ALT 18 (0-35) U/L Alkaline Phosphatase 111 (38-126) U/L Troponin I < 0.012 (0.000-0.034) ng/mL Serum Total Protein 7.7 (6.3-8.2) g/dL Albumin 4.3 (3.5-5.0) g/dL Amylase 98 (30-110) U/L Lipase 185 (23-300) U/L Urine Color (YELLOW) Urine Appearance (CLEAR) Urine pH (5-6) Ur Specific [place] (1.005-1.025) Urine Protein (Negative) Urine Ketones (NEGATIVE) Urine Blood (0-5) Matthew/ul Urine Nitrite (NEGATIVE) Urine Bilirubin (NEGATIVE) Urine Urobilinogen (0-1) mg/dL Ur Leukocyte Esterase (NEGATIVE) Urine WBC (Auto) (0-5) /HPF Urine RBC (Auto) (0-2) /HPF U Epithel Cells (Auto) (FEW) /HPF Urine Bacteria (Auto) (NEGATIVE) /HPF Urine Culture Reflexed (NO) Urine Glucose (NEGATIVE) mg/dL 03/02/20 03/02/20 03/02/20 Range/Units 19:05 19:05 19:00 WBC 5.6 (4.0-10.5) K/mm3 RBC 3.90 L (4.1-5.4) M/mm3 Hgb 12.3 (12.0-16.0) gm/dl Hct 36.9 (35-47) % MCV 94.6 (78-100) fl MCH 31.5 (26-32) pg MCHC 33.3 (32-36) g/dl RDW 13.8 (11.5-14.0) % Plt Count 211 (150-450) K/mm3 MPV 9.2 (7.5-11.0) fl Gran % 49.2 (36.0-66.0) % Eos # (Auto) 0.15 (0-0.5) Absolute Lymphs (auto) 2.03 (1.0-4.6) Absolute Monos (auto) 0.62 (0.0-1.3) Lymphocytes % 36.5 (24.0-44.0) % Monocytes % 11.2 (0.0-12.0) % Eosinophils % 2.7 (0.00-5.0) % Basophils % 0.4 (0.0-0.4) % Absolute Granulocytes 2.74 (1.4-6.9) Basophils # 0.02 (0-0.4) PT (9.95-12.35) SECONDS INR (0.8-3.0) D-Dimer (215-500) ng/mL Sodium (137-145) mmol/L Potassium (3.5-5.1) mmol/L Chloride (98-107) mmol/L Carbon Dioxide (22-30) mmol/L Anion Gap (5-15) MEQ/L BUN (7-17) mg/dL Creatinine (0.52-1.04) mg/dL Estimated GFR ML/MIN Glucose (74-106) mg/dL Lactic Acid 0.9 (0.4-2.0) Calcium (8.4-10.2) mg/dL Total Bilirubin (0.2-1.3) mg/dL AST (14-36) U/L ALT (0-35) U/L Alkaline Phosphatase (38-126) U/L Troponin I (0.000-0.034) ng/mL Serum Total Protein (6.3-8.2) g/dL Albumin (3.5-5.0) g/dL Amylase (30-110) U/L Lipase (23-300) U/L Urine Color STRAW (YELLOW) Urine Appearance CLEAR (CLEAR) Urine pH 8.0 (5-6) Ur Specific [place] 1.009 (1.005-1.025) Urine Protein NEGATIVE (Negative) Urine Ketones NEGATIVE (NEGATIVE) Urine Blood NEGATIVE (0-5) Matthew/ul Urine Nitrite NEGATIVE (NEGATIVE) Urine Bilirubin NEGATIVE (NEGATIVE) Urine Urobilinogen NEGATIVE (0-1) mg/dL Ur Leukocyte Esterase NEGATIVE (NEGATIVE) Urine WBC (Auto) 0-2 (0-5) /HPF Urine RBC (Auto) NONE (0-2) /HPF U Epithel Cells (Auto) NONE (FEW) /HPF Urine Bacteria (Auto) NONE (NEGATIVE) /HPF Urine Culture Reflexed NO (NO) Urine Glucose NEGATIVE (NEGATIVE) mg/dL - Progress Progress: unchanged Progress Note: 03/02/20 22:53 CAT scan of the chest with iv contrast reveals no evidence of any acute intrathoracic process. There is a small hiatal hernia present and cardiomegaly present 03/02/20 22:54 CAT scan of the abdomen and pelvis reveals no acute intra-abdominal process Counseled pt/family regarding: lab results, diagnosis, need for follow-up, rad results - Departure Departure Disposition: Home Clinical Impression: Abdominal pain Condition: Stable Critical Care Time: No Referrals: REGINALD CONNOR MD [Primary Care Provider] - Additional Instructions: Continue your medication as prescribed. Follow-up with your primary care physician for further management
[2020-03-02 19:13] LABS: Absolute Neutrophil Ct (ANC) 2.74 (1.4-6.9); BASOPHIL % 0.4 % (0.0-0.4); Basophil (Absolute #) 0.02 (0-0.4); Eosinophil % 2.7 % (0.00-5.0); Eosinophil (Absolute #) 0.15 (0-0.5); Hematocrit 36.9 % (35-47); Hemoglobin 12.3 gm/dl (12.0-16.0); Lymphocyte (Absolute #) 2.03 (1.0-4.6); Lymphocytes % 36.5 % (24.0-44.0); Mean Cell Volume 94.6 fl (78-100); Mean Corpuscular Hemoglobin 31.5 pg (26-32); Mean Corpuscular Hgb Concent. 33.3 g/dl (32-36); Mean Platelet Volume 9.2 fl (7.5-11.0); Monocyte (Absolute #) 0.62 (0.0-1.3); Monocytes % 11.2 % (0.0-12.0); Neutrophil % 49.2 % (36.0-66.0); Platelet Count 211 K/mm3 (150-450); Red Cell Distribution Width 13.8 % (11.5-14.0); White Blood Count 5.6 K/mm3 (4.0-10.5)
[2020-03-02 19:18] LABS: Appearance CLEAR (CLEAR); Bilirubin NEGATIVE (NEGATIVE); Blood NEGATIVE Ery/ul (0-5); Glucose NEGATIVE (NEGATIVE); Ketones NEGATIVE (NEGATIVE); Leukocyte Esterase NEGATIVE (NEGATIVE); Nitrite NEGATIVE (NEGATIVE); Protein,Urine Dip NEGATIVE (Negative); Specific Gravity 1.009 (1.005-1.025); Urobilinogen NEGATIVE mg/dL (0-1); WBC 0-2 /HPF (0-5)
[2020-03-02 19:24] LABS: INR 0.95 (0.8-3.0); PROTIME 10.7 SECONDS (9.95-12.35)
[2020-03-02 19:28] LABS: ALBUMIN 4.3 g/dL (3.5-5.0); ALKALINE PHOSPHATASE 111 U/L (38-126); AMYLASE 98 U/L (30-110); ANION GAP 11.5 MEQ/L (5-15); BLOOD UREA NITROGEN 23 mg/dL (7-17); CHLORIDE 104 mmol/L (98-107); Calcium 10.1 mg/dL (8.4-10.2); Carbon Dioxide 28 mmol/L (22-30); Creatinine 1 0.82 mg/dL (0.52-1.04); Glucose 112 mg/dL (74-106); LIPASE 185 U/L (23-300); Potassium 3.9 mmol/L (3.5-5.1); SGOT/AST 29 U/L (14-36); SGPT/ALT 18 U/L (0-35); SODIUM 140 mmol/L (137-145); Total Protein 7.7 g/dL (6.3-8.2)
[2020-03-02] MEDS ORDERED: Sodium Chloride 0.9% 1000 ML 1,000 ML IV SCH (21:00)
[2020-03-02] MEDS ORDERED: Sodium Chloride 0.9% 1000 ML 1,000 ML ONE (21:03)
[2020-03-02 23:23] VITALS: BP 156/70; PULSE 78; O2SAT 98
--- NOTE | 2020-03-03 09:07 | XRAY ---
Indication: Right-sided chest/back pain. Elevated d-dimer. Multiple contiguous axial images obtained through the chest using portable 120 cc Isovue 370 contrast and PE protocol. Comparison: None There is good opacification of the pulmonary arteries to include the lobar and segmental branches. No filling defect/pulmonary embolus. Heart is borderline enlarged with a left-sided dual-lead pacemaker. Aorta is minimally atherosclerotic without aneurysm/dissection. A few tiny subcarinal and right hilar calcified nodes. No pathologic mediastinal/hilar lymphadenopathy. Small hiatal hernia. Lungs demonstrate minimal bilateral dependent atelectasis and tiny right lower lobe calcified granuloma. No suspicious pulmonary mass, infiltrate, consolidation, or effusion. Bony thorax intact with mild osteopenia, mild/moderate degenerative changes throughout the thoracolumbar spine, and mild double curvature thoracolumbar scoliosis. CT abdomen/pelvis reported separately. Impression: 1. Negative pulmonary embolus. 2. Borderline cardiomegaly. No acute cardiopulmonary abnormalities. 3. Incidental small hiatal hernia, chronic bony findings, and evidence for old granulomatous disease.
--- NOTE | 2020-03-03 09:11 | XRAY ---
Indication: Right upper quadrant, epigastric, and right flank pain. Multiple contiguous axial images obtained through the abdomen and pelvis without contrast using renal stone protocol. Comparison: December 05, 2017. CT chest reported separately. No renal calculus or evidence for obstructive uropathy in either system. Stable tiny left renal calcified exophytic cyst. Urinary bladder is markedly distended concerning for outlet obstruction versus neurogenic bladder. Noncontrasted stomach and bowel loops appear nonobstructed. Normal appendix. Again previous cholecystectomy and hysterectomy. No free fluid/air. Remaining liver, pancreas, spleen, adrenal glands, kidneys, ureters, and bladder appear unremarkable for noncontrast exam. Again mild scattered aortoiliac calcifications without AAA. Osseous structures again demonstrates mild osteopenia, mild/moderate multilevel degenerative spondylosis, and double curvature thoracolumbar scoliosis. New finding old proximal left femur fracture with intact orthopedic hardware. Impression: 1. Negative renal calculus or evidence for obstructive uropathy. Stable tiny left renal calcified cyst favored to be benign given stability over the years. 2. New distended urinary bladder. Rule out outlet obstruction versus neurogenic bladder. 3. Chronic bony findings. 4. Remaining CT abdomen/pelvis without contrast exam is negative.
== END 2020-03-02 23:20 | disposition home or self-care (01) ==
LOC: ED 18:30
DX: R10.11 Right upper quadrant pain (principal); I10 Essential (primary) hypertension; K44.9 Diaphragmatic hernia without obstruction or gangrene; I51.7 Cardiomegaly; Z79.899 Other long term (current) drug therapy
CPT/HCPCS: 36000; 36415; 71260; 74176; 80053; 81001; 82150; 83605; 83690; 84484; 85025; 85379; 85610; 93005; 96360; 99284

== ENCOUNTER 2020-12-30 15:45 | Emergency (ER) | payer MEDICARE, OTHER ==
[2020-12-30 17:44] VITALS: O2SAT 99
[2020-12-30 18:09] VITALS: BP 151/74; PULSE 64
--- NOTE | 2020-12-30 18:17 | ERPHSYRPT ---
- History of Present Illness Time Seen by Provider: 12/30/20 16:05 Source: patient Exam Limitations: no limitations Patient Subjective Stated Complaint: L hip pain Triage Nursing Assessment: pt to ED c/o L hip pain x approx 1 week. was in PCP office Friday and recieved 2 shots which helped for about a day. hx L hip replacement. 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 rest alleviates pain. no rotation or shortening noted. ambulatory with cane and unsteady gate, per usual per pt. Physician History: Patient is an 89-year-old female who presents with an exacerbation of chronic low back pain pain is present in the left lower lumbar area and radiates down the left extremity primarily into the hip but also down to the foot. She has a history of chronic disease and is seeing chronic pain management for these problems but is not currently on anything other than gabapentin and tramadol. Timing/Duration: worse Method of Injury: unknown Quality: radiating, sharp, stabbing Back Pain Location: lumbar spine Back Pain Radiation: buttocks, lower legs Severity of Pain-Max: moderate Severity of Pain-Current: moderate Modifying Factors: Improves With: nothing Associated Symptoms: lower back pain Previous symptoms: same symptoms as today Allergies/Adverse Reactions: No Known Drug Allergies Allergy (Verified 12/30/20 16:05) Home Medications: Amlodipine Besylate 5 mg [Norvasc 5 mg] 5 mg PO DAILY 03/02/20 [History] Aspirin EC 325 mg [Ecotrin 325 MG] 325 mg PO DAILY 03/02/20 [History] Ezetimibe 10 mg PO DAILY 03/02/20 [History] Ezetimibe 10 mg [Zetia 10 MG] 10 mg PO DAILY 03/02/20 [History] Gabapentin 100 mg PO DAILY 03/02/20 [History] Losartan Potassium 25 mg PO DAILY 03/02/20 [History] Metoprolol Tartrate 25 mg [Lopressor 25MG Tab] 25 mg PO DAILY 03/02/20 [History] Omeprazole 40 mg PO DAILY 03/02/20 [History] Potassium Chloride [Klor-Con M20] 20 meq PO DAILY 03/02/20 [History] Pravastatin Sodium 80 mg PO DAILY 03/02/20 [History] Tizanidine HCl 4 mg [Zanaflex 4 MG] 4 mg PO DAILY 03/02/20 [History] Tramadol HCl 50 mg [Ultram 50 mg] 50 mg PO DAILY 03/02/20 [History] Hx Tetanus, Diphtheria Vaccination/Date Given: Yes Hx Influenza Vaccination/Date Given: Yes Hx Pneumococcal Vaccination/Date Given: Yes Immunizations Up to Date: Yes Travel Risk - International Travel Have you traveled outside of the country in past 3 weeks: No - Coronavirus Screening Are you exhibiting any of the following symptoms?: No Close contact with a COVID-19 positive Pt in past 14-21 Days: No - Review of Systems Constitutional: No Fever, No Chills Eyes: No Symptoms Ears, Nose, & Throat: No Symptoms Respiratory: No Cough, No Dyspnea Cardiac: No Chest Pain, No Edema, No Syncope Abdominal/Gastrointestinal: No Abdominal Pain, No Nausea, No Vomiting, No Diarrhea Genitourinary Symptoms: No Dysuria Musculoskeletal: Back Pain, No Neck Pain Skin: No Rash Neurological: No Dizziness, No Focal Weakness, No Sensory Changes Psychological: No Symptoms Endocrine: No Symptoms All Other Systems: Reviewed and Negative - Past Medical History Pertinent Past Medical History: Yes Neurological History: Migraines ENT History: Cataracts Cardiac History: Arrhythmia, High Cholesterol, Hypertension Respiratory History: No Pertinent History Endocrine Medical History: No Pertinent History Musculoskeletal History: Arthritis GI Medical History: GERD, Gallbladder Disease History: No Pertinent History Psycho-Social History: No Pertinent History Female Reproductive Disorders: No Pertinent History - Past Surgical History Past Surgical History: Yes Neuro Surgical History: No Pertinent History Cardiac: Pacemaker Respiratory: No Pertinent History Gastrointestinal: Cholecystectomy Genitourinary: No Pertinent History Musculoskeletal: Orthopedic Surgery Female Surgical History: Hysterectomy Other Surgical History: left foot surgery. L hip replacement 2017 - Social History Smoking Status: Never smoker Exposure to second hand smoke: No Drug Use: none Patient Lives Alone: No (daughter moved in) - Nursing Vital Signs Nursing Vital Signs: Initial Vital Signs Temperature 97.3 F 12/30/20 15:57 Pulse Rate 70 12/30/20 15:57 Respiratory Rate 18 12/30/20 15:57 Blood Pressure 160/76 12/30/20 15:57 O2 Sat by Pulse Oximetry 98 12/30/20 15:57 Pain Scale Pain Intensity 7 - Physical Exam General Appearance: mild distress, alert Eye Exam: PERRL/EOMI, eyes nml inspection Neck Exam: normal inspection, non-tender, supple, full range of motion, No meningismus, No midline tenderness Respiratory Exam: normal breath sounds, lungs clear, No respiratory distress Cardiovascular Exam: regular rate/rhythm, normal heart sounds Gastrointestinal Exam: soft, No tenderness, No mass Extremity Exam: normal inspection, normal range of motion, No calf tenderness, No pedal edema Neurologic Exam: alert, oriented x 3, cooperative, 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, normal mood/affect, sensation nml, motor weakness, abnormal gait, No motor deficits Skin Exam: normal color, warm, dry, No rash SpO2 Interpretation: normal SpO2: 99 O2 Delivery: Room Air - Course Nursing assessment & vital signs reviewed: Yes - CT Exams Lumbar Spine CT Interpretation: Other (Radiology reports) Ordered Tests: Active Orders 24 hr Category Date Time Status LOWER EXTREMITY WO CONTRAST [CT] Stat Exams 12/30/20 15:58 Taken LUMBAR SPINE W/O [CT] Stat Exams 12/30/20 15:58 Taken - Progress Progress: unchanged - Departure Departure Disposition: Home Clinical Impression: Lumbar radiculopathy Condition: Stable Critical Care Time: No Referrals: REGINALD CONNOR MD [Primary Care Provider] - Instructions: Radiculopathy (DC) Prescriptions: Oxycodone HCl/Acetaminophen [Percocet 5-325 mg Tablet] 1 each PO Q6H PRN PRN 3 Days #12 tablet MDD 4 PRN Reason: Pain Prednisone 20 mg [Deltasone 20 mg] 20 mg PO BID 4 Days #8 tablet Diclofenac Sodium 50 mg [Voltaren 50 mg] 50 mg PO TID 5 Days #15 tablet.ec
--- NOTE | 2020-12-30 20:08 | XRAY ---
Indication: Low back pain. No known injury. Multiple contiguous axial images obtained through the lumbar spine. Sagittal and coronal reformatted images obtained. Comparison: CT abdomen/pelvis March 02, 2020. Stable mild osteopenia and mild/moderate multilevel lumbar degenerative spondylosis again greatest at the L1-L2 levels. Facets are symmetric with stable moderate L5-S1 degenerative facet hypertrophy. 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 No acute compression fracture or subluxation. Visualized noncontrasted soft tissues demonstrates scattered mild aortoiliac calcifications and tiny left renal calcified exophytic cyst. Impression: 1. Stable osteopenia, multilevel degenerative spondylosis, and levorotoscoliosis. 2. Negative for large disc herniation or spinal canal stenosis. Comment: Preliminary interpretation was made by [facility]. No critical discrepancy.
--- NOTE | 2020-12-30 20:12 | XRAY ---
Indication: Left hip pain. No known injury. Multiple contiguous axial images obtained through the left hip. Two-dimensional sagittal and coronal reformatted images obtained. Comparison: CT abdomen/pelvis March 02, 2020. Osseous structures remain demineralized. Stable old proximal left femur fracture with intact gamma nail and partially visualized intramedullary demetria. Also stable tiny heterotopic ossifications. No acute fracture, dislocation, or suspicious bony lesions. Visualized noncontrasted soft tissues again demonstrates scattered vascular calcifications and hysterectomy. Impression: 1. Stable osteopenia and old proximal femur fracture with intact visualized fixation hardware. 2. No new or acute findings. Comment: Preliminary interpretation was made by C. No critical discrepancy.
== END 2020-12-30 18:35 | disposition home or self-care (01) ==
LOC: ED 15:45
DX: M54.16 Radiculopathy, lumbar region (principal); M25.552 Pain in left hip; I10 Essential (primary) hypertension; E78.00 Pure hypercholesterolemia, unspecified; Z79.899 Other long term (current) drug therapy
CPT/HCPCS: 72131; 73700; 99284

== ENCOUNTER 2022-05-10 23:07 | Emergency (ER) | payer MEDICARE, OTHER ==
[2022-05-10 23:49] VITALS: PULSE 68
--- NOTE | 2022-05-10 23:50 | ERPHSYRPT ---
- History of Present Illness Time Seen by Provider: 05/10/22 23:47 Source: patient Exam Limitations: no limitations Patient Subjective Stated Complaint: pt states " I have neuropathy in my feet and I took my shoe off tonight and my toe was crooked." Triage Nursing Assessment: Pt ambulatory to bed by self with assistance of personal walker, pt alert and oriented x3, pt has hx of neuropathy, pt took shoe off of her R foot and noticed her toe was red and crooked, pt's 4th digit on R foot swollen and red, cap refill less than 2 seconds Physician History: pt states " I have neuropathy in my feet and I took my shoe off tonight and my toe was crooked." pt has hx of neuropathy, pt took shoe off of her R foot and noticed her toe was red and crooked, pt's 4th digit on R foot swollen and red, cap refill less than 2 seconds Method of Injury: unknown Occurred: just prior to arrival Severity of Pain-Max: none Severity of Pain-Current: none Lower Extremities Pain: 4th toe: right (swollen) Allergies/Adverse Reactions: No Known Drug Allergies Allergy (Verified 05/10/22 23:33) Home Medications: Amlodipine Besylate 5 mg [Norvasc 5 mg] 5 mg PO DAILY 03/02/20 [History] Aspirin EC 325 mg [Ecotrin 325 MG] 325 mg PO DAILY 03/02/20 [History] Ezetimibe 10 mg PO DAILY 03/02/20 [History] Ezetimibe 10 mg [Zetia 10 MG] 10 mg PO DAILY 03/02/20 [History] Gabapentin 100 mg PO DAILY 03/02/20 [History] Losartan Potassium 25 mg PO DAILY 03/02/20 [History] Metoprolol Tartrate 25 mg [Lopressor 25MG Tab] 25 mg PO DAILY 03/02/20 [History] Omeprazole 40 mg PO DAILY 03/02/20 [History] Potassium Chloride [Klor-Con M20] 20 meq PO DAILY 03/02/20 [History] Pravastatin Sodium 80 mg PO DAILY 03/02/20 [History] Tizanidine HCl 4 mg [Zanaflex 4 MG] 4 mg PO DAILY 03/02/20 [History] Tramadol HCl 50 mg [Ultram 50 mg] 50 mg PO DAILY 03/02/20 [History] Hx Tetanus, Diphtheria Vaccination/Date Given: No Hx Influenza Vaccination/Date Given: Yes Hx Pneumococcal Vaccination/Date Given: Yes Immunizations Up to Date: Yes Travel Risk - International Travel Have you traveled outside of the country in past 3 weeks: No - Coronavirus Screening Are you exhibiting any of the following symptoms?: No Close contact with a COVID-19 positive Pt in past 14-21 Days: No - Vaccine Status Have you recieved a Covid-19 vaccination: Yes 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 - Vaccination Dates Dates if Unknown: unknown - Review of Systems Constitutional: No Symptoms Eyes: No Symptoms Ears, Nose, & Throat: No Symptoms Respiratory: No Symptoms Cardiac: No Symptoms Abdominal/Gastrointestinal: No Symptoms Genitourinary Symptoms: No Symptoms Musculoskeletal: Joint Swelling (4th right toe) - Past Medical History Pertinent Past Medical History: Yes Neurological History: Migraines, Peripheral Neuropathy ENT History: Cataracts Cardiac History: Hypertension Respiratory History: No Pertinent History Endocrine Medical History: Hypothyroidism Musculoskeletal History: Osteoarthritis, Osteoporosis GI Medical History: GERD, Gallbladder Disease History: No Pertinent History Psycho-Social History: No Pertinent History Female Reproductive Disorders: No Pertinent History Other Medical History: PACEMAKER, - Past Surgical History Past Surgical History: Yes Neuro Surgical History: No Pertinent History Cardiac: Pacemaker Respiratory: No Pertinent History Gastrointestinal: Cholecystectomy Genitourinary: No Pertinent History Musculoskeletal: Orthopedic Surgery Female Surgical History: Hysterectomy Other Surgical History: left foot surgery. L hip replacement 2017 - Social History Smoking Status: Never smoker Exposure to second hand smoke: No Drug Use: none Patient Lives Alone: No - Nursing Vital Signs Nursing Vital Signs: Initial Vital Signs Temperature 98.7 F 05/10/22 23:45 Pulse Rate 68 05/10/22 23:45 Respiratory Rate 16 05/10/22 23:45 Blood Pressure 162/78 05/10/22 23:45 O2 Sat by Pulse Oximetry 97 05/10/22 23:45 Pain Scale Pain Intensity 0 - Physical Exam General Appearance: alert Eyes, Ears, Nose, Throat Exam: moist mucous membranes Neck Exam: non-tender, supple Cardiovascular/Respiratory Exam: chest non-tender, normal breath sounds, regular rate/rhythm, no respiratory distress Gastrointestinal/Abdominal Exam: non-tender, guarding Back Exam: normal inspection, No vertebral tenderness Hips Exam: bilateral: non-tender Legs Exam: bilateral leg: non-tender Knees Exam: bilateral knee: non-tender Ankle Exam: bilateral ankle: non-tender Foot Exam: right foot: deformity (right 4th toe) DTR - Lower Extremities Exam: knee (R): 2+, knee (L): 2+, ankle (R): 2+, ankle (L): 2+ Neuro/Tendon Exam: normal sensation, normal motor functions Mental Status Exam: alert, oriented x 3, cooperative Skin Exam: normal color, warm, dry SpO2: 97 - Course Nursing assessment & vital signs reviewed: Yes - Radiology Exams Foot X-ray Interpretation: Reviewed by me, Non-displaced Fracture (4th toe) Ordered Tests: Active Orders 24 hr Category Date Time Status FOOT (MINIMUM 3 VIEWS) Stat Exams 05/10/22 Ordered - Progress Progress: unchanged Counseled pt/family regarding: diagnosis, need for follow-up, rad results - Departure Departure Disposition: Home Clinical Impression: Stress fracture of metatarsal bone of right foot Qualifiers: Encounter type: initial encounter Qualified Code(s): M84.374A - Stress fracture, right foot, initial encounter for fracture Condition: Stable Critical Care Time: No Referrals: REGINALD CONNOR MD [Primary Care Provider] - Follow up/PCP as directed (follow up with podiatry clinic on friday) Instructions: Toe Injury (DC) Additional Instructions: Discharge/Care Plan HATTIE HAIDER was seen on 05/11/22 in the Emergency Room. The patient was counseled regarding Diagnosis,Lab results, Imaging studies, need for follow up and when to return to the Emergency Room. Prescriptions given: Discharge Note I have spoken with the patient and/or caregivers. I have explained the patient's condition, diagnosis and treatment plan based on the information available to me at this time. I have answered the patient's and/or caregiver's questions and addressed any concerns. The patient and/or caregivers have as good understanding of the patient's diagnosis, condition and treatment plan as can be expected at this point. The vital signs have been stable. The patient's condition is stable and appropriate for discharge from the emergency department. The patient will pursue further outpatient evaluation with the primary care physician or other designated or consulting physician as outlined in the disch arge instructions. The patient and/or caregivers are agreeable to this plan of care and follow-up instructions have been explained in detail. The patient and/or caregivers have received these instruction. The patient/and or caregivers are aware that any significant change in condition or worsening of symptoms should prompt an immediate return to this or the closest emergency department or call 911. HATTIE HAIDER was seen on 05/11/22 n the Emergency Room. At that time you were treated for an emergent condition, during your visit Laboratory, Radiology and/or other procedures may have been ordered. It is very important that you follow-up with your Primary Care Physician REGINALD CONNOR within the next 24-48 hours to review your Emergency Room visit and the final results of testing that was ordered. Some test results such as Urine Cultures, Blood Cultures, and other cultures if ordered will not be finalized for 24-48 hours. If you do not have a Primary Care Provider please call the medical records department at [phone] ext [phone] to obtain a copy of your results or you may sign into our patient portal to obtain these results by visiting us @ [email or web address] and completing the following steps: 1. Click on the Patient Portal link 2. Click the Patient Self Enrollment Link to complete the enrollment form and entering your 3. Once the enrollment form is completed you will receive an email with a temporary ID and password at the email address you provided. 4. Next choose a user name and password. Your user name must be at least 4 characters long and your password must be at least 4 characters long. 5. Choose a security question from the list and provide your answer to the question. If you already have signed into the Health Portal you may access your Health Care Information 28/04 by the following steps: 1. Login to our website @ [email or web address] 2. Enter your original user name and password. FAQS The [facility] Health Portal is an online tool that contains your Lab Results, Radiology Reports, Visit History, Discharge Instructions and Health Summary Lab and Radiology Results will not be available for 72 hours on the portal. The Portal is a secure site, passwords are encryted and URLs are re-written so they cannot be copied and pasted. You and authorized family members are the only ones who can access your Portal. Also there is a timeout feature that protects your information if you leave the Portal page open. If you have technical difficulty please use the Contact Us link on the page this will allow you to submit any questions you have regarding the Portal or you may contact the Medical Record Department at [phone] ext [phone].
[2022-05-11 00:15] VITALS: BP 154/70; O2SAT 96
--- NOTE | 2022-05-11 07:05 | XRAY ---
Indication: Pain. Comparison: None 3 nonweightbearing views right foot demonstrates nondisplaced fracture shaft 4th proximal phalanx with soft tissue swelling. Elsewhere osteopenia, mild 1st MTP bunion deformity, mild/moderate midfoot degenerative changes, and small plantar/tiny posterior heel spurs. Remaining foot unremarkable.
== END 2022-05-11 00:24 | disposition home or self-care (01) ==
LOC: ED 23:07
DX: M84.374A Stress fracture, right foot, initial encounter for fracture (principal); I10 Essential (primary) hypertension; G62.9 Polyneuropathy, unspecified; Z79.899 Other long term (current) drug therapy
CPT/HCPCS: 73630; 99282